=== PATIENT | male | born 1975 | race Caucasian/White ===

== ENCOUNTER 2022-12-15 06:35 | Emergency (ER) | payer MEDICAID ==
[~2022-12-15] VITALS: Ht 172.7 cm; Wt 138.8 kg
[2022-12-15 07:02] VITALS: BP 159/95
== END 2022-12-15 07:23 | disposition home or self-care (01) ==
LOC: ER 06:35
DX: S60.861A Insect bite (nonvenomous) of right wrist, initial encounter (principal); E11.9 Type 2 diabetes mellitus without complications; I10 Essential (primary) hypertension; W57.XXXA Bitten or stung by nonvenomous insect and other nonvenomous arthropods, initial encounter; Z88.6 Allergy status to analgesic agent; Z88.1 Allergy status to other antibiotic agents
CPT/HCPCS: 99282